=== PATIENT | male | born 1945 | race Caucasian/White ===

== ENCOUNTER 2017-02-21 08:21 | Day surgery (SDC) | payer OTHER ==
[~2017-02-21] VITALS: Ht 165.1 cm; Wt 64.4 kg
[~2017-02-21 08:21] MED LIST: ASPI81TA85 PO; ATOR1TAB19 PO; LEVO25TA5 PO
[2017-02-21] MEDS ORDERED: NS 1,000 ML IV SCH (08:30)
[2017-02-21] MEDS ORDERED: LIDOCAINE 2% INJ 100 MG/5 ML SDV (FOR ANES.) As Ordered ONE (10:18)
[2017-02-21] MEDS ORDERED: PROPOFOL 500 MG/50 ML VIAL As Ordered ONE (10:18)
--- NOTE | 2017-02-21 10:30 | ROOR ---
Patient Name: Isaias Ulrich Procedure Date: 02/21/2017 9:54 AM Date of : 1945 Age: 72 Room: [facility] Gender: Male Note Status: Finalized Procedure: Colonoscopy Indications: High risk colon cancer surveillance: Personal history of colonic polyps, Last colonoscopy: July 2013 Providers: Milton OVALLE MD Referring MD: Wellington Easley MD Requesting Provider: Medicines: Monitored Anesthesia Care Complications: No immediate complications. Procedure: Pre-Anesthesia Assessment: - The heart rate, respiratory rate, oxygen saturations, blood pressure, adequacy of pulmonary ventilation, and response to care were monitored throughout the procedure. The Colonoscope was introduced through the anus and advanced to the cecum, identified by appendiceal orifice and ileocecal valve. The colonoscopy was performed without difficulty. The patient tolerated the procedure well. The quality of the bowel preparation was good. Findings: The perianal and digital rectal examinations were normal. Mild diverticulosis and small internal hemorrhoids. Four sessile polyps were found in the rectum (benign-appearing lesion). The polyps were diminutive in size. These polyps were removed with a cold snare. Resection and retrieval were complete. Impression: - Mild diverticulosis and small internal hemorrhoids. - Four benign appearing diminutive polyps in the rectum, removed with a cold snare. Resected and retrieved. - The exam was otherwise normal to the cecum. Recommendation: - Telephone my office for pathology results in 2 weeks. - If the pathology report reveals adenomatous tissue, then repeat the colonoscopy for surveillance in 3 years. - If the pathology report indicates hyperplastic polyp, then repeat colonoscopy for surveillance based on personal history of previous adenomatous polyps in 5 years. Milton Ovalle MD Milton OVALLE MD 02/21/2017 10:30:10 AM This report has been signed electronically. Number of Addenda: 0 Note Initiated On: 02/21/2017 9:54 AM Estimated Blood Loss: Estimated blood loss: none.
[2017-02-21 10:40] VITALS: BP 172/83
== END 2017-02-21 10:58 | disposition home or self-care (01) ==
LOC: M OPP 08:21
PROVIDERS: ATTEND Internal Medicine Gastroenterology
DX: Z12.11 Encounter for screening for malignant neoplasm of colon (principal); K62.1 Rectal polyp; K57.30 Diverticulosis of large intestine without perforation or abscess without bleeding; K64.8 Other hemorrhoids; E78.00 Pure hypercholesterolemia, unspecified; E07.9 Disorder of thyroid, unspecified; F17.210 Nicotine dependence, cigarettes, uncomplicated; Z86.010 Personal history of colon polyps; Z79.82 Long term (current) use of aspirin; Z79.899 Other long term (current) drug therapy

== ENCOUNTER → 2019-09-10 | Outpatient (REF) | payer OTHER, MEDICARE ==
[2019-09-10 16:56] LABS: BLOOD UREA NITROGEN 19 MG/DL (7-18); CALCIUM LEVEL 8.8 MG/DL (8.8-10.2); CARBON DIOXIDE LEVEL 27 MEQ/L (21-32); CHLORIDE LEVEL 105 MEQ/L (98-107); CREATININE FOR GFR 1.07 MG/DL (0.70-1.30); GLOMERULAR FILTRATION RATE > 60.0 (>42); GLUCOSE, FASTING 133 MG/DL (70-100); MAGNESIUM LEVEL 2.6 MG/DL (1.8-2.4); POTASSIUM SERUM 4.2 MEQ/L (3.5-5.1); SODIUM LEVEL 137 MEQ/L (136-145)
== END ==
LOC: M SFHCCLAY 09:36
PROVIDERS: ATTEND Family Medicine
DX: R25.2 Cramp and spasm (principal)

== ENCOUNTER → 2019-10-02 | Outpatient (CLI) | payer OTHER ==
--- NOTE | 2019-10-02 20:00 | REP ---
Clinical: Symptoms related to atherosclerotic disease and intermittent claudication. Technique: Real time gutierrez scale and color Doppler evaluation of the bilateral lower extremity arterial vasculature using linear high frequency transducer. Findings: Right lower extremity demonstrates significant atheromatous plaquing including moderate stenosis at the level of the distal superficial femoral artery and popliteal artery with subsequent decreased flow velocities. Biphasic wave patterns noted at the common femoral artery and profunda followed by monophasic wave patterns distally to the ankle. Left lower extremity demonstrates significant atheromatous plaquing with occlusion of the popliteal artery and subsequent downstream revascularization demonstrating decreased flow velocities. Biphasic wave patterns noted at the common femoral artery followed by monophasic wave patterns distally to the ankle. 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 Electronically Signed by Tony Malik MD 10/02/2019 07:51 P
== END ==
LOC: M RAD 10:36
PROVIDERS: ATTEND Family Medicine
DX: R25.2 Cramp and spasm (principal); I70.203 Unspecified atherosclerosis of native arteries of extremities, bilateral legs

== ENCOUNTER → 2020-04-07 | Outpatient (CLI) | payer SELFPAY ==
[~2020-04-07] MED LIST changes: -ASPI81TA85 PO; +ASPI81TA86 PO
== END ==
LOC: M LABSMTC 15:50
PROVIDERS: ATTEND Pediatrics
DX: Z20.828 Contact with and (suspected) exposure to other viral communicable diseases (principal)

== ENCOUNTER 2025-01-14 06:14 | Day surgery (SDC) | payer OTHER ==
[~2025-01-14] VITALS: Ht 165.1 cm; Wt 70.5 kg
[~2025-01-14 06:14] MED LIST changes: +AMLO1TAB25 PO; +ASPI81TA26 PO; +ATOR80TA59 PO; +CYCLOPENTOLATE 1% OPHTH SOLN 2 ML BTL OD SCH; +D200CAP3 PO; +FLURBIPROFEN 0.03% OPHTH SOLN 2.5 ML OD SCH; +LISI10TA22 PO; +LR 1,000 ML IV SCH; +METO50TA7 PO; +PHENYLEPHRINE 2.5% OPHTH SOL 2ML OD SCH; +TERA2CAP3 PO; +TETRACAINE 0.5% OPHTH SOLN 4ML OD SCH
[2025-01-14] MEDS ORDERED: MIDAZOLAM INJ 2 MG/2 ML VIAL As Ordered ONE (06:54)
[2025-01-14] MEDS: TETRACAINE 0.5% OPHTH SOLN 4ML OD SCH (06:55)
[2025-01-14] MEDS: PHENYLEPHRINE 2.5% OPHTH SOL 2ML OD SCH (06:55)
[2025-01-14] MEDS: FLURBIPROFEN 0.03% OPHTH SOLN 2.5 ML OD SCH (06:55)
[2025-01-14] MEDS: CYCLOPENTOLATE 1% OPHTH SOLN 2 ML BTL OD SCH (06:55)
[2025-01-14] MEDS ORDERED: LR 1,000 ML IV SCH (07:00)
[2025-01-14] MEDS: LIDOCAINE 1% SDV 5 ML VIAL As Ordered ONE (07:33)
[2025-01-14] MEDS: CEFUROXIME 1 MG/0.1 ML INTRACAMERAL INJ As Ordered ONE (07:41)
[2025-01-14 08:05] VITALS: BP 176/77; TEMP 97; O2SAT 98
== END 2025-01-14 08:20 | disposition home or self-care (01) ==
LOC: M SDC 06:14
PROVIDERS: ATTEND Ophthalmology
DX: H25.89 Other age-related cataract (principal); I10 Essential (primary) hypertension; Z98.61 Coronary angioplasty status; I25.10 Atherosclerotic heart disease of native coronary artery without angina pectoris; E78.5 Hyperlipidemia, unspecified; Z79.899 Other long term (current) drug therapy; F17.210 Nicotine dependence, cigarettes, uncomplicated; E03.9 Hypothyroidism, unspecified; G47.33 Obstructive sleep apnea (adult) (pediatric); Z79.82 Long term (current) use of aspirin
CPT/HCPCS: 66984; J0697; J2250; J3010; V2788

== ENCOUNTER 2025-03-18 06:17 | Day surgery (SDC) | payer OTHER ==
[~2025-03-18] VITALS: Ht 165.1 cm; Wt 71.2 kg
[~2025-03-18 06:17] MED LIST changes: -CYCLOPENTOLATE 1% OPHTH SOLN 2 ML BTL OD SCH; -FLURBIPROFEN 0.03% OPHTH SOLN 2.5 ML OD SCH; -LR 1,000 ML IV SCH; -PHENYLEPHRINE 2.5% OPHTH SOL 2ML OD SCH; -TETRACAINE 0.5% OPHTH SOLN 4ML OD SCH
[2025-03-18] MEDS: FLURBIPROFEN 0.03% OPHTH SOLN 2.5 ML OS SCH (06:53)
[2025-03-18] MEDS: TETRACAINE 0.5% OPHTH SOLN 4ML OS SCH (06:53)
[2025-03-18] MEDS: PHENYLEPHRINE 2.5% OPHTH SOL 2ML OS SCH (06:53)
[2025-03-18] MEDS: CYCLOPENTOLATE 1% OPHTH SOLN 2 ML BTL OS SCH (06:53)
[2025-03-18] MEDS ORDERED: LR 1,000 ML IV SCH (07:00)
[2025-03-18] MEDS ORDERED: MIDAZOLAM INJ 2 MG/2 ML VIAL As Ordered ONE (07:01)
[2025-03-18] MEDS: LIDOCAINE 1% SDV 5 ML VIAL As Ordered ONE (08:03)
[2025-03-18] MEDS: CEFUROXIME 1 MG/0.1 ML INTRACAMERAL INJ As Ordered ONE (08:04)
[2025-03-18 08:34] VITALS: BP 167/84; TEMP 97.4; O2SAT 96
== END 2025-03-18 08:49 | disposition home or self-care (01) ==
LOC: M SDC 06:17
PROVIDERS: ATTEND Ophthalmology
DX: H25.12 Age-related nuclear cataract, left eye (principal); I25.10 Atherosclerotic heart disease of native coronary artery without angina pectoris; I10 Essential (primary) hypertension; E78.00 Pure hypercholesterolemia, unspecified; E03.9 Hypothyroidism, unspecified; G47.30 Sleep apnea, unspecified; Z95.5 Presence of coronary angioplasty implant and graft; F17.210 Nicotine dependence, cigarettes, uncomplicated; Z79.890 Hormone replacement therapy; Z79.899 Other long term (current) drug therapy; Z79.82 Long term (current) use of aspirin; Z98.41 Cataract extraction status, right eye
CPT/HCPCS: 66984; J0697; J2250; J3010; V2787